=== PATIENT | female | born 1995 | race Caucasian/White ===

== ENCOUNTER 2020-09-06 10:07 | Emergency (ER) | payer OTHER ==
[~2020-09-06] VITALS: Ht 167.6 cm; Wt 59.1 kg
--- NOTE | 2020-09-06 10:28 | NUR ---
LOWER ABD CRAMPING LAST NIGHT, SEEN AT [facility]- TOLD SHE HAS OVARIAN CYSTS WITH FLUID. PT WENT HOME AND OVER NIGHT DEVELOPED V/N AND WORSENING PAIN. PT DENIES BLEEDING OR DISCHARGE, SOB, CP, OR RECENT TRAUMA.
[2020-09-06] MEDS ORDERED: HYDROcodone/APAP 5/325 TABLET PO ONE (11:00)
[2020-09-06] MEDS ORDERED: ONDANSETRON ODT 4 MG PO ONE (11:00)
[2020-09-06] MEDS ORDERED: KETOROLAC 30 MG/1 ML IM ONE (11:00)
[2020-09-06 11:03] LABS: BASOPHILS % (AUTO) 0 % (0-1); EOSINOPHILS % (AUTO) 0 % (1-7); LYMPHOCYTES % (AUTO) 15 % (22-44); MD NO; MEAN CORPUSCULAR HEMOGLOBIN 34.2 pg (27.0-34.8); MEAN CORPUSCULAR HGB CONC 35.7 g/dL (32.4-35.8); MEAN PLATELET VOLUME 8.6 fL (7.4-10.4); MONOCYTES % (AUTO) 7 % (2-9); NEUTROPHILS % (AUTO) 78 % (42-75); PLATELET COUNT 282 x10^3/uL (130-400); RED BLOOD COUNT 3.49 x10^6/uL (3.82-5.3)
[2020-09-06] MEDS ORDERED: ONDANSETRON ODT 4 MG ONE (11:06)
[2020-09-06] MEDS ORDERED: KETOROLAC 30 MG/1 ML ONE (11:07)
[2020-09-06] MEDS ORDERED: HYDROcodone/APAP 5/325 TABLET ONE (11:07)
--- NOTE | 2020-09-06 11:12 | NUR ---
PT TO ULTRA SOUND
--- NOTE | 2020-09-06 12:13 | NUR ---
PT RESTING IN BED, CALL LIGHT IN REACH.
--- NOTE | 2020-09-06 13:48 | NUR ---
Ermd at bedside to discuss POC
--- NOTE | 2020-09-06 14:12 | NUR ---
discharge instructions reviewed
[2020-09-06 14:25] VITALS: BP 103/50
--- NOTE | 2020-09-06 14:26 | NUR ---
FLOTREMAINE RN: VS STABLE. PT UNDERSTANDS DC INSTRUCTIONS. PT DISCHARGED.
== END 2020-09-06 14:28 | disposition home or self-care (01) ==
LOC: ED 13:58
DX: N83.292 Other ovarian cyst, left side (principal); R10.2 Pelvic and perineal pain; R11.2 Nausea with vomiting, unspecified; R61 Generalized hyperhidrosis; F17.200 Nicotine dependence, unspecified, uncomplicated
CPT/HCPCS: 36415; 76830; 84703; 85025; 86850; 86900; 96372; 99285; J1885; Q0162